=== PATIENT | female | born 2000 | race Caucasian/White ===

== ENCOUNTER 2022-05-18 23:53 | Emergency (ER) | payer MEDICAID ==
[~2022-05-18] VITALS: Ht 157.5 cm; Wt 68.9 kg
[2022-05-19 00:18] VITALS: BP 117/81
[2022-05-19] MEDS ORDERED: CEPH-509 PO (02:58)
[2022-05-19] MEDS ORDERED: CEPHALEXIN 250 MG CAP PO ONE (03:00)
[2022-05-19] MEDS ORDERED: TETANUS-DIPTH-ACEL PERTUSSIS 0.5ML SYR Tdap IM ONE (03:00)
== END 2022-05-19 06:19 | disposition home or self-care (01) ==
LOC: ER 23:53
DX: S90.462A Insect bite (nonvenomous), left great toe, initial encounter (principal); W57.XXXA Bitten or stung by nonvenomous insect and other nonvenomous arthropods, initial encounter; Y93.89 Activity, other specified; Y92.89 Other specified places as the place of occurrence of the external cause; Y99.8 Other external cause status
CPT/HCPCS: 90471; 90715